=== PATIENT | male | born 1960 | race African-American/Black ===

== ENCOUNTER 2024-11-25 13:11 | Emergency (ER) | payer OTHER, SELFPAY ==
[2024-11-25] VITALS (21 sets, daily range): BP systolic 154–164; BP diastolic 100–107; PULSE 68–91; TEMP 37; O2SAT 94–98; BMI 35.7
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
--- NOTE | 2024-11-25 13:16 | ECG_ITS ---
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 Measurements Intervals [place] Rate: 70 P: 58 ND: 166 QRS: 86 QRSD: 76 T: 49 QT: 354 QTc: 374 Interpretive Statements 1100 Sinus rhythm 3114 Cannot rule out anterior myocardial infarction, age undetermined 8102 Low QRS voltage in chest leads 9150 abnormal ECG No previous ECG available for comparison Electronically Signed On 11-25-2024 18:22:16 EDT by KARRI CADENA M.D.
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
[2024-11-25] MEDS: ONDANSETRON PF 4 MG/2 ML VIAL IV (13:29)
[2024-11-25] MEDS: MORPHINE SULFATE 4 MG/ML VIAL IM (13:29)
[2024-11-25] MEDS: 0.9 % SODIUM CHLORIDE 1,000 ML 999 ML IV (13:52)
[2024-11-25 14:06] LABS: Basophils Percent Auto 0.4 % (0.2-2.0); Eosinophils Absolute Auto 0.2 10^3/uL (0.0-0.7); Eosinophils Percent Auto 2.9 % (0.9-7.0); Hematocrit 52.4 % (42.0-54.0); Hemoglobin 17.6 g/dL (14.0-18.0); Immature Granulocytes Abs Auto 0.04 10^3/uL (0.00-0.03); Immature Granulocytes Pct Auto 0.5 % (0.0-0.5); Lymphocytes Absolute Auto 2.9 10^3/uL (1.2-3.8); Lymphocytes Percent Auto 34.9 % (20.5-60.0); Mean Corpuscular HGB Conc 33.6 g/dL (29.9-35.2); Mean Corpuscular Volume 86.3 fL (80.0-94.0); Monocytes Absolute Auto 0.7 10^3/uL (0.3-0.8); Monocytes Percent Auto 7.9 % (1.7-12.0); Neutrophils Absolute Auto 4.4 10^3/uL (1.4-6.5); Neutrophils Percent Auto 53.4 % (43.0-75.0); Platelet Count 127 10^3/uL (150-450); Red Blood Count 6.07 10^6/uL (4.70-6.10); Red Cell Distribution Width 15.6 % (11.0-15.0); White Blood Count 8.2 10^3/uL (4.0-11.0)
[2024-11-25 14:18] LABS: INR 0.99; Partial Thromboplastin Time 30.2 sec (22.3-36.2); Prothrombin Time 10.5 sec (9.0-11.6)
[2024-11-25 14:21] LABS: Alanine Aminotransferase 28 U/L (16-63); Albumin Globulin Ratio 0.8; Albumin Level 3.3 g/dL (3.4-5.0); Alkaline Phosphatase 73 U/L (46-116); Anion Gap 13.5; Aspartate Amino Transferase 15 U/L (15-37); BUN Creatinine Ratio 16.1; Bilirubin Total 0.4 mg/dL (0.2-1.0); Calcium 9.1 mg/dL (8.5-10.1); Carbon Dioxide 25.5 mmol/L (21.0-32.0); Chloride 108 mmol/L (98-107); Estimated GFR (African America >60 (>=60 mL/min/1.73m^2); Estimated GFR (Non-African Ame >60 (>=60 mL/min/1.73m^2); Globulin 4.1 g/dL; Glucose 107 mg/dL (74-106); Sodium 143 mmol/L (136-145); Total Protein 7.4 g/dL (6.4-8.2)
[2024-11-25 14:24] LABS: Troponin I High Sensitivity 5.9 pg/mL (4.0-76.1)
== END 2024-11-25 15:48 | disposition home or self-care (01) ==
PROVIDERS: Emergency Provider Emergency Medicine
DX: S13.4XXA Sprain of ligaments of cervical spine, initial encounter (principal); V54.5XXA Driver of pick-up truck or van injured in collision with heavy transport vehicle or bus in traffic accident, initial encounter; S29.012A Strain of muscle and tendon of back wall of thorax, initial encounter; S16.1XXA Strain of muscle, fascia and tendon at neck level, initial encounter; M54.12 Radiculopathy, cervical region; S80.02XA Contusion of left knee, initial encounter
CPT/HCPCS: 36415; 70450; 71260; 72125; 74177; 80053; 81001; 83690; 84484; 85025; 85610; 85730; 86850; 86900; 86901; 93005; 96372; 96374; 99285; J2270; J2405; Q9967